=== PATIENT | female | born 1960 | race Caucasian/White ===

== ENCOUNTER → 2018-07-29 09:20 | Outpatient (CLI) | payer OTHER, SELFPAY ==
--- NOTE | 2018-07-29 09:24 | RAD_ITS ---
STUDY: X-RAY - LEFT ANKLE REASON FOR EXAM: Female, 57 years old. Left foot and ankle pain TECHNIQUE: 3 view(s) of the ankle. COMPARISON: None. FINDINGS: Normal visualized distal tibia and fibula. Well ossified density of the medial ankle suggesting old avulsion injury. Mild degenerative narrowing of the tibiotalar and fibulotalar articulation. Normal tibiotalar articulation and ankle mortise. There is a small calcaneal spur. The visualized subtalar, talonavicular, calcaneocuboid and tarsal articulations are normal. The soft tissue structures are unremarkable. RAD/Ankle min 3 Views IMPRESSION: 1. Mild osteoarthrosis of the ankle. 2. Old medial ankle avulsion injury. Electronically Signed: Tanner Gannon MD at 12:27 EST , Service support ,
--- NOTE | 2018-07-29 09:24 | RAD_ITS ---
STUDY: X-RAY - LEFT FOOT CLINICAL: Female, 57 years old. Left foot and ankle pain TECHNIQUE: 3 view(s) of the foot. COMPARISON: 08/07/2015 FINDINGS: There is a plantar calcaneal spur. Normal visualized subtalar, talonavicular, calcaneocuboid, tarsal and tarsometatarsal articulations. Normal metatarsi. There is degenerative arthrosis of the metatarsophalangeal joint of the hallux . Normal tibial and fibular sesamoid bones. Normal interphalangeal joint of the great toe. Normal phalanges of the great toe. There is joint space narrowing of the second MTP joint with flattening of the second metatarsal head and marginal osteophyte information about the phalanx and metatarsus. No erosion is seen. Normal interphalangeal joints and phalanges of the lesser toes. The soft tissue structures are unremarkable. RAD/Foot min 3 Views IMPRESSION: 1. No fracture or malalignment. 2. 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 Stable appearance since prior study. 3. Calcaneal spur. Electronically Signed: Tanner Gannon MD at 12:25 EST , Service support ,
--- OUTSIDE RECORDS SUMMARY | 2018-10-02 16:26 | XMS RPT_ITS ---
:1960 Author Organization OHIP Care Team Providers Name Role Phone Barron Bustillos Attending Unavailable Barron Bustillos Referring Unavailable Barron Bustillos Primary Care Unavailable Abram Castro Attending Unavailable Abram Castro Referring Unavailable Barron Bustillos Primary Care Unavailable ASSESSMENT, HEALTH RISK Attending Unavailable ASSESSMENT, HEALTH RISK Referring Unavailable Barron Bustillos Primary Care Unavailable Tamika Gomez Attending Unavailable Tamika Gomez Referring Unavailable Barron Bustillos Primary Care Unavailable DOCTOR, OUT OF TOWN Attending Unavailable Barron Bustillos Primary Care Unavailable PROBLEMS PROBLEMS No Problem Records FoundPROCEDURES PROCEDURES No Procedure Records FoundRESULTS RESULTS INITAL EVALUATION (1) Observed: 08/04/2018 Status: F Source: [place] - PT 11:36 AM [facility] REPOSITORY [facility] [address] [place] [address] / REHABILITATION SERVICES INITIAL EVALUATION MR#: [id number] Acct: [id number] Name: ABIOLA COLLIER Rep #: [id number] : 1960 57 From: Gomez Kirby PT, ATC Referring Dr.: Barron Bustillos MD Status: REG RCR Insurance: [facility] SELF PAY INSURANCE Patient's Visit Information ABIOLA COLLIER is a 57 year old F referred to Physical Therapy by Barron Bustillos MD with a diagnosis of R knee pain. Date of Evaluation: 08/04/18 Physical Therapist: Gomez Kirby, PT, ATC - Visit Plan Frequency: 1x/Week Duration: 1 Week Plan: Pt is I with HEP. Discharge - Subjective Findings: Pt reports her R knee has been sore for 2-3 years. Pt reports her knee used to be just clicky without pain, but eventually pain came into the picture. Pt reports her pain has progressively worsened over the past 3 mos. Pt notes her pain is located more on the medial aspect of her R knee and occurs the most when she is going down stairs. knee never gives out or locks up on her. Pt reports she has had no xrays taken at this time. Occasional sleep difficulty secondary to pain. Pt is unsure of PMHx reguarding R knee as she did have a knee problem in high school, but she cant remember which knee it was. 0/10 pain at rest, 4/10 pain at worst (at night time). Pain progressively worsens as the day goes on. - Pain R knee Pain Intensity (Out of 10): 0 Pain Intensity Range: 4 - Objective Neuro: B LE sensation is WNL to light touch. B achilles reflex= 3/3. Palpation: Pt has significant crepitus with AROM. Girth at joint line: B knees 32.5 cm. ROM: L knee 0-140; R knee 0-135. MMT: B knee flexion and extension= 5/5 throughout - Goals Goal 1:: N/A - Rehabilitation Potential Physical Therapy Diagnosis: Pt has R knee pain secondary to maltracking for patellofemoral joint Rehabilitation Potential: Good - Anticipated Interventions Therapeutic Exercise to Include: Strength training, Endurance training, Flexibilty training, Dynamic Lumbar Stabilization For the Purpose of:: To decrease pain, To improve muscle performance and motor function Thank you for the opportunity to evaluate your patient. For Medicare and Medicare HMO plans, please review the plan of care and approve it. It will need to be FAXED BACK to us at [phone] for Medicare purposes. For Medicare only, by signing this I certify the plan of care. Please let me know if there are questions or concerns regarding this plan of care. Physician Signature: Date: <Electronically signed by Gomez Kirby PT, ATC> 08/04/18 1136 CC: Barron Bustillos MD [facility] Signed URINALYSIS, EMPLOYEE Collected: 08/02/2018 Status: F Source: [place] 8:39 AM [facility] REPOSITORY TYPE CODE TESTS RESULT OUT OF RANGE REFERENCE UNITS LAB L400.3000 Yellow COLOR Normal Straw LAB L400.3050 Clear Normal CLARITY Clear LAB L400.3200 Normal mg/dl Normal GLUCOSE, UR Normal LAB L400.3300 Negative mg/dL Normal BILIRUBIN URINE Negative LAB L400.3400 Negative mg/dl Normal KETONE UR Negative LAB L400.3465 1.002-1.030 Normal SP.GR. DIPSTX 1.005 LAB L400.3550 5.0 - 8.0 pH UR Normal 6.5 LAB L400.3600 Negative mg/dl PROT Normal DIPSTX Negative LAB L400.3700 Normal mg/dl Normal UROBILI Normal LAB L400.3750 Negative Normal NITRITE UR Negative LAB L400.3780 Negative /ul Normal OCCULT BLOOD-UR Negative LAB L400.3800 Negative /ul LEUK Normal ESTERASE Negative Performed By: #### L400.0100 #### [facility] [address] [place], [address] CBC, EMPLOYEE Collected: 08/02/2018 Status: F Source: [place] 8:39 AM [facility] REPOSITORY TYPE CODE TESTS RESULT OUT OF RANGE REFERENCE UNITS LAB L100.1000 4.4-11.0 K/mm3 Normal WBC 8.0 LAB L100.1200 4.2-5.4 M/mm3 Normal RBC 4.96 LAB L100.1300 12.0-15.0 g/dl Normal HGB 14.6 LAB L100.1400 37-47 % Normal HCT 45.9 LAB L100.1500 81-99 fL Normal MCV 92.5 LAB L100.1600 27.0-32.0 pg Normal MCH 29.4 LAB L100.1700 32-36 g/gl Low MCHC 31.8 LAB L100.1810 11.6-14.6 % Normal RDW CV 12.6 LAB L100.1820 35.1-43.9 fl Normal RDW SD 42.5 LAB L100.1900 150-450 K/mm3 Normal PLT 243 LAB L100.2000 6.2-12.0 fl Normal MPV 10.3 LAB L100.2110 47-70 % High NEUT% 75.4 LAB L100.2210 19-41 % Low LY% 17.5 LAB L100.2310 0-10 % Normal MONO% 5.7 LAB L100.2410 0-5 % Normal EO% 1.1 LAB L100.2510 0-1 % Normal BASO% 0.2 LAB L100.2620 2.0-7.7 X10 3/uL Normal Absolute Neut 6.0 LAB L100.2720 0.83-4.51 X10 3/ul Normal Absolute Lymph 1.40 Performed By: #### L100.0200 #### [facility] [address] [place], [address] NICOTINE URINE DRUG Collected: 08/02/2018 Status: F Source: [place] SCRE[place] 8:39 AM [facility] REPOSITORY TYPE CODE TESTS RESULT OUT OF RANGE REFERENCE UNITS LAB L505.6250 TO BE Normal CONFIRMED Result Comment: CONFIRMATORY TESTING FOR ALL POSITIVE URINE DRUG SCREEN RESULTS WILL ONLY BE SENT OUT UPON PHYSICIAN ORDER. The results of Urine Drug Screen methods provide only preliminary analytical test results. A more specific alternate chemical method must be used in order to obtain a confirmed analytical result. Gas chromatography/mass spectrometery (GC/MS) is the preferred confirmatory method. Clinical consideration and professional judgement should be applied to any drug of abuse test result, particularly when preliminary positive results are used. LAB L505.6270 <200 ng/mL Normal COT DRG Negative SCREEN Result Comment: Cotinine is the first-stage metabolite of Nicotine. Performed By: #### L505.6240 #### [facility] [address] [place], [address] EMPLOYEE PROFILE Collected: 08/02/2018 Status: F Source: [place] 8:39 AM [facility] REPOSITORY TYPE CODE TESTS RESULT OUT OF RANGE REFERENCE UNITS LAB L501.0100 74-106 mg/dL Normal GLU 100 Result Comment: Fasting Glucose result from 100 to 125 mg/dL suggests IMPAIRED HOMEOSTASIS per A.D.A. criteria. Please note revised GLUCOSE reference range effective 2017. LAB L501.1000 7-18 mg/dL Normal BUN 15 LAB L501.1100 0.55-1.02 mg/dL High CREAT,SERUM 1.05 Result Comment: The validity of the calculated GFR AND GFRAA in patients over 70 years has not been determined. Clinical correlation is essential. LAB L501.1110 >60 mL/min Low EST GFR 57 Result Comment: Non- GFR Calc LAB L501.1115 >60 mL/min Normal EST GFR - AA 69 Result Comment: GFR Calc LAB L501.1300 10-20 RATIO Normal BUN/CRE 14.3 LAB L501.1400 2.6-6.0 mg/dL Normal URIC 4.2 Result Comment: The drugs N-Acetylcysteine and Metamizole may falsely depress this assay. LAB L501.1500 6.4-8.2 g/dL Normal T PROT 7.7 LAB L501.1800 3.2-5.0 g/dL Normal ALB 3.9 LAB L501.1950 2.2-4.2 g/dL Normal GLOB 3.8 LAB L501.2000 0.9-2.4 RATIO Normal A/G 1.0 LAB L501.2200 8.5-10.1 mg/dL Normal CA 9.3 LAB L501.2300 2.5-4.9 mg/dL Normal PHOS 3.3 LAB L501.4100 15-37 U/L High AST 42 LAB L501.4305 45-117 U/L High ALK P 126 LAB L501.4405 13-56 U/L High ALT 122 LAB L501.4600 0.20-1.00 mg/dL High T BILI 1.40 LAB L501.4700 0.00-0.30 mg/dL Normal D BILI 0.29 LAB L501.4900 200 mg/dL High CHOL 201 Result Comment: <200 mg/dL Desirable 200-240 mg/dL Borderline >240 mg/dL High Risk LAB L501.5000 mg/dL Normal TRIG 150 Result Comment: The drugs N-Acetylcysteine and Metamizole may falsely depress this assay. Serum Triglycerides Reference Interval Normal <150 mg/dL Borderline high 150 - 199 mg/dL High 200 - 499 mg/dL Very High > or = 500 mg/dL LAB L501.5300 136-145 mmol/L Normal NA 140 LAB L501.5600 3.5-5.1 mmol/L Normal K 4.3 LAB L501.5900 98-107 mmol/L Normal CL 104 LAB L501.6100 21.0-32.0 mmol/L Normal CO2 29.0 LAB L501.6200 5-15 Normal 7 GAP LAB L501.6400 mg/dL Normal HDL 63 Result Comment: The drugs N-Acetylcysteine and Metamizole may falsely depress this assay. Reference Range HDL <40 mg/dL Low HDL Cholesterol HDL >or= 60 mg/dL High HDL Cholesterol LAB L501.6475 Normal CHOL:HDL 3.20 LAB L501.6500 0-130 mg/dL Normal LDL 108 LAB L501.6600 5-40 mg/dL Normal VLDL 30 LAB L504.2610 84-246 U/L Normal LDH 156 Performed By: #### L500.2900 #### [facility] [address] [place], [address] THYROID STIM HORMONE Collected: 08/02/2018 Status: F Source: [place] ([place]) 8:30 AM [facility] REPOSITORY TYPE CODE TESTS RESULT OUT OF RANGE REFERENCE UNITS LAB L501.9520 0.358-3.74 uIU/mL Normal TSH 3.27 Performed By: #### L501.9520 #### [facility] [address] [place], [address] FOOT MIN 3 VIEWS Observed: 07/29/2018 Status: F Source: [place] 9:24 AM [facility] REPOSITORY [facility] Imaging Services [address] [place] [address] Foot min 3 Views MR#: [id number] Acct: [id number] Name: ABIOLA COLLIER Rep #: [id number] : 1960 F 57 From: Tanner Gannon MD PCP: Barron Bustillos MD Status: REG CLI Study: Foot min 3 Views Date of Exam: 07/29/18 Exam# [id number] Ordering Dr: Abram Castro DPM STUDY: X-RAY - LEFT FOOT CLINICAL: Female, 57 years old. Left foot and ankle pain TECHNIQUE: 3 view(s) of the foot. COMPARISON: 08/07/2015 FINDINGS: There is a plantar calcaneal spur. Normal visualized subtalar, talonavicular, calcaneocuboid, tarsal and tarsometatarsal articulations. Normal metatarsi. There is degenerative arthrosis of the metatarsophalangeal joint of the hallux . Normal tibial and fibular sesamoid bones. Normal interphalangeal joint of the great toe. Normal phalanges of the great toe. There is joint space narrowing of the second MTP joint with flattening of the second metatarsal head and marginal osteophyte information about the phalanx and metatarsus. No erosion is seen. Normal interphalangeal joints and phalanges of the lesser toes. The soft tissue structures are unremarkable. RAD/Foot min 3 Views IMPRESSION: 1. No fracture or malalignment. 2. 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 Stable appearance since prior study. 3. Calcaneal spur. Electronically Signed: Tanner Gannon MD at 12:25 EST , Service support , CC: Abram Castro DPM; Barron Busitllos MD Bakery Associate: Signed ANKLE MIN 3 VIEWS Observed: 07/29/2018 Status: F Source: [place] 9:24 AM [facility] REPOSITORY [facility] Imaging Services [address] [place] [address] Ankle min 3 Views MR#: [id number] Acct: [id number] Name: ABIOLA COLLIER Rep #: [id number] : 1960 F 57 From: Tanner Gannon MD PCP: Barron Bustillos MD Status: REG CLI Study: Ankle min 3 Views Date of Exam: 07/29/18 Exam# [id number] Ordering Dr: Abram Castro DPM STUDY: X-RAY - LEFT ANKLE REASON FOR EXAM: Female, 57 years old. Left foot and ankle pain TECHNIQUE: 3 view(s) of the ankle. COMPARISON: None. FINDINGS: Normal visualized distal tibia and fibula. Well ossified density of the medial ankle suggesting old avulsion injury. Mild degenerative narrowing of the tibiotalar and fibulotalar articulation. Normal tibiotalar articulation and ankle mortise. There is a small calcaneal spur. The visualized subtalar, talonavicular, calcaneocuboid and tarsal articulations are normal. The soft tissue structures are unremarkable. RAD/Ankle min 3 Views IMPRESSION: 1. Mild osteoarthrosis of the ankle. 2. Old medial ankle avulsion injury. Electronically Signed: Tanner Gannon MD at 12:27 EST , Service support , CC: Abram Castro DPM; Barron Bustillos MD Bakery Associate: Signed ALLERGIES ALLERGIES DATE TYPE / CODE NAME / CODE REACTION SEVERITY SOURCE 08/16/2014 Drug Sulfa Rash Unknown [place] Pending Sale To [facility] Allergy/4160 ([facility] [address]214(SNOMED Antibiotics)/ Repository CT) [id number](RX NORM) ENCOUNTERS ENCOUNTERS ADMIT/DISCHARGE ACCOUNT ADMITTING ENCOUNTER LOCATION SOURCE NUMBER CLASS 08/04/2018 [id number] [place] [facility] ing:PT Repository 08/02/2018 [id number] Ambulatory [place] 9 [facility] ing:LAB Repository 08/02/2018 [id number] Ambulatory [place] 6 [facility] ing:EMPH Repository 07/29/2018 [id number] Ambulatory [place] 1 [facility] ing:RAD Repository 06/30/2018 [id number] Ambulatory [place] 3 [facility] ing:MASS Repository PAYERS PAYERS ENCOUNTER GUARANTOR PAYER SUBSCRIBER SOURCE 08/04/2018 ABIOLA A Primary ABIOLA A [place] [id number] [place] Insurance:MEDICAL TROYERDOB: [id number] [address]Brk: Number: Repository [id number] () Date:6715-00-07ZA [place] [phone]: 08/04/2018 Secondary NOT GIVENUNK [place] Insurance:SELF PAY [facility] Number: Effective Repository Date:2018-07-27 08/02/2018 ABIOLA A Primary ABIOLA A [place] [id number] [place] Insurance:MEDICAL TROYERDOB: [facility] [id number] [address]Icx: Number: Repository [id number] () Date:2910-17-13RB [address] [place] [phone]: 08/02/2018 Secondary NOT GIVENUNK [place] Insurance:SELF PAY [facility] Number: Effective Repository Date:2018-08-02 08/02/2018 ABIOLA A Primary NOT GIVENUNK [place] [id number] [place] Insurance:SELF PAY [facility] 19759Jdf: Number: Effective Repository Date:2018-08-02 (HP) 07/29/2018 ABIOLA A Primary ABIOLA A [place] [id number] [place] Insurance:MEDICAL TROYERDOB: [facility] [id number] [address]Dmr: Number: Repository [id number] () Date:9402-04-08XV [address] [place] [phone]: 07/29/2018 Secondary NOT GIVENUNK [place] Insurance:SELF PAY [facility] Number: Effective Repository Date:2018-07-29 06/30/2018 ABIOLA A Primary NOT GIVENUNK [place] [id number] [place] Insurance:SELF PAY [facility] [id number]: Number: Effective Repository Date:2015-12-23 ()
== END ==
PROVIDERS: Family Provider Family Medicine; PCP Family Medicine; Referring Provider Podiatrist Foot & Ankle Surgery; Visit Provider Podiatrist Foot & Ankle Surgery
DX: M25.571 Pain in right ankle and joints of right foot (principal); M24.674 Ankylosis, right foot
CPT/HCPCS: 73610; 73630

== ENCOUNTER → 2018-08-02 08:24 | Outpatient (CLI) | payer OTHER, SELFPAY ==
[2018-08-02 10:09] LABS: Thyroid Stim Hormone (TSH) 3.27 uIU/mL (0.358-3.74)
--- OUTSIDE RECORDS SUMMARY | 2018-10-04 08:57 | XMS RPT_ITS ---
:1960 Author Organization OHIP Care Team Providers Name Role Phone Barron Bustillos Attending Unavailable Barron Bustillos Referring Unavailable Barron Bustillos Primary Care Unavailable Abram Castro Attending Unavailable Abram Castro Referring Unavailable Barron Bustillos Primary Care Unavailable DOCTOR, OUT OF TOWN Attending Unavailable Barron Bustillos Primary Care Unavailable ASSESSMENT, HEALTH RISK Attending Unavailable ASSESSMENT, HEALTH RISK Referring Unavailable Barron Bustillos Primary Care Unavailable Tamika Gomez Attending Unavailable Tamika Gomez Referring Unavailable Barron Bustillos Primary Care Unavailable PROBLEMS PROBLEMS No Problem Records FoundPROCEDURES PROCEDURES No Procedure Records FoundRESULTS RESULTS INITAL EVALUATION (1) Observed: 08/04/2018 Status: F Source: [place] - PT 11:36 AM [facility] REPOSITORY [facility] [address] [place] [address] / REHABILITATION SERVICES INITIAL EVALUATION MR#: [id number] Acct: [id number] Name: ABIOLA COLLIER Rep #: [id number] : 1960 57 From: Gomez Kirby PT, ATC Referring Dr.: Barron Bustillos MD Status: REG RCR Insurance: [facility] SELF PAY INSURANCE Patient's Visit Information ABIOLA [...] to be FAXED BACK to us at [phone] for Medicare purposes. For Medicare only, by signing this I certify the plan of care. Please let me know if there are questions or concerns regarding this plan of care. Physician Signature: Date: <Electronically signed by Gomez Kirby PT, ATC> 08/04/18 1136 CC: Barron Bustillos MD [facility] Signed URINALYSIS, EMPLOYEE Collected: 08/02/2018 Status: F Source: [place] 8:39 AM [facility] REPOSITORY TYPE CODE TESTS RESULT OUT OF [...] ESTERASE Negative Performed By: #### L400.0100 #### [facility] [address] [place], [address] CBC, EMPLOYEE Collected: 08/02/2018 Status: F Source: [place] 8:39 AM [facility] REPOSITORY TYPE CODE TESTS RESULT OUT OF [...] Lymph 1.40 Performed By: #### L100.0200 #### [facility] [address] [place], [address] NICOTINE URINE DRUG Collected: 08/02/2018 Status: F Source: [place] SCREEN 8:39 AM [facility] REPOSITORY TYPE CODE TESTS RESULT OUT OF [...] of Nicotine. Performed By: #### L505.6240 #### [facility] [address] [place], [address] EMPLOYEE PROFILE Collected: 08/02/2018 Status: F Source: [place] 8:39 AM [facility] REPOSITORY TYPE CODE TESTS RESULT OUT OF [...] LDH 156 Performed By: #### L500.2900 #### [facility] [address] [place], [address] THYROID STIM HORMONE Collected: 08/02/2018 Status: F Source: [place] (T[place]) 8:30 AM [facility] REPOSITORY TYPE CODE TESTS RESULT OUT OF RANGE REFERENCE UNITS LAB L501.9520 0.358-3.74 uIU/mL Normal TSH 3.27 Performed By: #### L501.9520 #### [facility] [address] [place], [address] FOOT MIN 3 VIEWS Observed: 07/29/2018 Status: F Source: [place] 9:24 AM [facility] REPOSITORY [facility] Imaging Services [address] [place] [address] Foot min 3 Views MR#: [id number] Acct: [id number] Name: ABIOLA COLLIER Rep #: [id number] : 1960 F 57 From: Tanner Gannon MD PCP: Barron Bustillos MD Status: REG CLI Study: Foot min 3 Views Date of Exam: 07/29/18 Exam# [id number] Ordering Dr: Abram Castro DPM STUDY: X-RAY [...] CC: Abram Castro DPM; Barron Bustillos MD Cytogenetic Technologist: Signed ANKLE MIN 3 VIEWS Observed: 07/29/2018 Status: F Source: [place] 9:24 AM [facility] REPOSITORY [facility] Imaging Services [address] [place] [address] Ankle min 3 Views MR#: [id number] Acct: [id number] Name: ABIOLA COLLIER Rep #: [id number] : 1960 F 57 From: Tanner Gannon MD PCP: Barron Bustillos MD Status: REG CLI Study: Ankle min 3 Views Date of Exam: 07/29/18 Exam# [id number] Ordering Dr: Abram Castro DPM STUDY: X-RAY [...] CC: Abram Castro DPM; Barron Bustillos MD Cytogenetic Technologist: Signed ALLERGIES ALLERGIES DATE TYPE / CODE NAME / CODE REACTION SEVERITY SOURCE 08/16/2014 Drug Sulfa Rash Unknown [place] Count Includes [facility] Allergy/4160 ([facility] [address]80(SNOMED Antibiotics)/ Repository CT) [id number](RX NORM) ENCOUNTERS ENCOUNTERS ADMIT/DISCHARGE ACCOUNT ADMITTING ENCOUNTER LOCATION SOURCE NUMBER CLASS 08/04/2018 [id number] Amb[place] [facility] ing:PT Repository 08/02/2018 [id number] Ambulatory [place] 9 [facility] ing:LAB Repository 08/02/2018 [id number] Ambulatory [place] 6 [facility] ing:EMPH Repository 07/29/2018 [id number] Ambulatory [place] 1 [facility] ing:RAD Repository 06/30/2018 [id number] Ambulatory [place] 3 [facility] ing:MASS Repository PAYERS PAYERS ENCOUNTER GUARANTOR PAYER SUBSCRIBER SOURCE 08/04/2018 ABIOLA A Primary [place]A A [place] [id number] [place] Insurance:MEDICAL TROYERDOB: [facility] [id number] [address]Ljy: Number: Repository [id number] () Date:7109-49-97ZQ [place] [phone]: 08/04/2018 Secondary NOT GIVENUNK [place] Insurance:SELF PAY [facility] Number: Effective Repository Date:2018-07-27 08/02/2018 ABIOLA A Primary ABIOLA A [place] [id number] [place] Insurance:MEDICAL TROYERDOB: [facility] [id number] [address]Apk: Number: Repository [id number] () Date:0890-49-50LS [address] [place] [phone]: 08/02/2018 Secondary NOT GIVENUNK [place] Insurance:SELF PAY [facility] Number: Effective Repository Date:2018-08-02 08/02/2018 ABIOLA A Primary NOT GIVENUNK [place] [id number] [place] Insurance:SELF PAY [facility] [id number]: Number: Effective Repository Date:2018-08-02 (HP) 07/29/2018 ABIOLA A Primary [place] A [place] [id number] [place] Insurance:MEDICAL TROYERDOB: [facility] [id number]-[facility]onc[facility] [address]Mao: Number: Repository [id number] () Date:2305-73-18SN [address] [place] [phone]: 07/29/2018 Secondary NOT GIVENUNK [place] Insurance:SELF PAY [facility] Number: Effective Repository Date:2018-07-29 06/30/2018 ABIOLA A Primary NOT GIVENUNK [place] [id number] [place] Insurance:SELF PAY [facility] [id number]: Number: Effective Repository Date:2015-12-23 ()
== END ==
PROVIDERS: Family Provider Family Medicine; PCP Family Medicine; Referring Provider Nurse Practitioner Adult Health; Visit Provider Nurse Practitioner Adult Health
DX: E03.9 Hypothyroidism, unspecified (principal)
CPT/HCPCS: 36415; 84443

== ENCOUNTER 2018-08-04 10:26 | Outpatient (RCR) | payer OTHER, SELFPAY ==
--- NOTE | 2018-08-04 11:34 | HP.PTEVAL ---
Patient's Visit Information ABIOLA COLLIER is a 57 year old F referred to Physical Therapy by Barron Bustillos MD with a diagnosis of R knee pain. Date of Evaluation: 08/04/18 Physical Therapist: Gomez Kirby PT, ATC - Visit Plan Frequency: 1x/Week Duration: 1 Week Plan: Pt is I with [facility]P. Discharge - Subjective Findings: Pt reports her R knee has been sore for 2-3 years. Pt reports her knee used to be just clicky without pain, but eventually pain came into the picture. Pt reports her pain has progressively worsened over the past 3 mos. Pt notes her pain is located more on the medial aspect of her R knee and occurs the most when she is going down stairs. knee never gives out or locks up on her. Pt reports she has had no xrays taken at this time. Occasional sleep difficulty secondary to pain. Pt is unsure of PMHx reguarding R knee as she did have a knee problem in high school, but she cant remember which knee it was. 0/10 pain at rest, 4/10 pain at worst (at night time). Pain progressively worsens as the day goes on. - Pain R knee Pain Intensity (Out of 10): 0 Pain Intensity Range: 4 - Objective Neuro: B LE sensation is WNL to light touch. B achilles reflex= 3/3. Palpation: Pt has significant crepitus with AROM. Girth at joint line: B knees 32.5 cm. ROM: L knee 0-140; R knee 0-135. MMT: B knee flexion and extension= 5/5 throughout - Goals Goal 1:: N/A - Rehabilitation Potential Physical Therapy Diagnosis: Pt has R knee pain secondary to maltracking for patellofemoral joint Rehabilitation Potential: Good - Anticipated Interventions Therapeutic Exercise to Include: Strength training, Endurance training, Flexibilty training, Dynamic Lumbar Stabilization For the Purpose of:: To decrease pain, To improve muscle performance and motor function Thank you for the opportunity to evaluate your patient. For Medicare and Medicare HMO plans, please review the plan of care and approve it. It will need to be FAXED BACK to us at [phone] for Medicare purposes. For Medicare only, by signing this I certify the plan of care. Please let me know if there are questions or concerns regarding this plan of care. Physician Signature: Date:
== END 2018-08-04 19:00 | disposition home or self-care (01) ==
LOC: PT 10:26
PROVIDERS: Family Provider Family Medicine; PCP Family Medicine; Referring Provider Family Medicine; Visit Provider Family Medicine
DX: M25.561 Pain in right knee (principal)
CPT/HCPCS: 97110; 97161

== ENCOUNTER → 2018-08-10 15:18 | Outpatient (CLI) | payer OTHER, SELFPAY ==
--- NOTE | 2018-08-10 15:27 | MRI_ITS ---
STUDY: MRI LEFT ANKLE WITHOUT CONTRAST REASON FOR EXAM: Female, 57 years old. Left ankle pain. TECHNIQUE: Standardized fat and water weighted pulse sequences were obtained in all 3 orthogonal planes. COMPARISON: X-ray July 29, 2018. FINDINGS: Normal subcutis adipose space. There is marrow edema of the medial malleolus. There is ossification inferior to the medial malleolus with prior avulsion and/or chronic impingement, series 5 image 12/29. Normal posterior tibialis tendon. Normal flexor digitorum longus tendon. Normal flexor hallucis longus tendon. Normal peroneus longus and brevis tendons. Normal tibialis anterior tendon. Normal extensor hallucis longus tendon. Normal extensor digitorum longus tendons. Normal Achilles tendon and teno-osseous insertion. Normal plantar fascia. There is a plantar calcaneal spur, but without cancellous marrow edema. Normal intrinsic muscles of the rearfoot. Normal distal tibiofibular syndesmotic ligamentous complex. Normal lateral ligamentous complex. Normal subtalar ligaments and sinus tarsi. Thickening with chronic sprain of the deltoid ligamentous complexes. Normal plantar calcaneonavicular (spring) ligament. There is a joint effusion of the tibiotalar articulation with capsular distension. There is arthritic change with spurring. Normal talar dome. Normal subtalar articulations. Normal talonavicular articulation. Normal calcaneocuboid articulation. Normal navicular-cuneiform articulations. MRI/Lower Ext Joint Only (Routine) IMPRESSION: Tibiotalar arthrosis with joint effusion. There is chronic medial impingement and/or prior avulsion. Electronically Signed: Leighton Chacon MD at 21:50 EST , Service support ,
== END ==
PROVIDERS: Family Provider Family Medicine; PCP Family Medicine; Referring Provider Podiatrist Foot & Ankle Surgery
DX: M25.572 Pain in left ankle and joints of left foot (principal)
CPT/HCPCS: 73721

== ENCOUNTER → 2018-08-17 14:07 | Outpatient (CLI) | payer OTHER, SELFPAY ==
--- NOTE | 2018-08-17 14:09 | BI_ITS ---
MAMMOGRAPHY - BILATERAL SCREENING REASON FOR EXAM: Female, 57 years old. Routine annual screening examination. PERTINENT HISTORY: Aunt with breast cancer. TECHNIQUE: Digital bilateral breast cherie (3D mammographic acquisition) in the CC and MLO projections. 2-D mediolateral oblique (MLO) and craniocaudad (CC) views of both breasts were obtained. CAD: Full Field Digital Mammography with Computer Added Detection was performed. COMPARISON: Comparison is made with prior study dated July 15, 2017 and June 22, 2016. FINDINGS: Breast Composition: There are scattered areas of fibroglandular density. There are no dominant masses or suspicious calcifications. Stable appearance of the benign appearing bilateral axillary lymph nodes. No other significant abnormalities are identified. There has been no significant change since the prior study. BI/SCREENING MAMM (CAD), BILAT IMPRESSION: Stable bilateral screening mammogram. Yearly follow-up mammogram recommended. (A) ASSESSMENT CATEGORY: BIRADS Category 2: Benign. A letter regarding these results will be sent to the patient by the facility within 30 days. Approximately 10% of breast cancers are not detected by mammography. A normal mammogram should not delay biopsy of a clinically suspicious abnormality. [id number] Electronically Signed: Jamison Bailey MD at 15:39 EST , Service support ,
== END ==
PROVIDERS: Family Provider Family Medicine; PCP Family Medicine; Visit Provider Nurse Practitioner Adult Health
DX: Z12.31 Encounter for screening mammogram for malignant neoplasm of breast (principal)
CPT/HCPCS: 77063; 77067

== ENCOUNTER 2018-09-01 05:53 | Day surgery (SDC) | payer OTHER, SELFPAY ==
--- NOTE | 2018-08-25 07:42 | EKG12_ITS ---
Test Reason : PRE-OP Blood Pressure : / mmHG Vent. Rate : 057 BPM Atrial Rate : 057 BPM P-R Int : 164 ms QRS Dur : 084 ms QT Int : 436 ms P-R-T Axes : 030 005 027 degrees QTc Int : 424 ms Sinus bradycardia Otherwise normal ECG Confirmed by NEMO ANTHONY, RICARDO ([id number]), news copy editor RICKI HANNA ([id number]) on 08/26/2018 8:14:11 AM Referred By: Abram Castro Confirmed By:RICARDO CHESTER MD
[2018-09-01 06:31] VITALS: BP 105/74; PULSE 67; RESP 16; TEMP 36.4; O2SAT 100; BMI 28.6
[2018-09-01 08:26] VITALS: BP 105/74; BP 111/72; PULSE 62; RESP 16; TEMP 36.1; O2SAT 97
--- NOTE | 2018-09-01 08:26 | PCM.DC.POD ---
Allergies/Adverse Reactions: Allergies Sulfa (Sulfonamide Antibiotics) Allergy (Verified 08/25/18 13:47) Rash Medications to take at Discharge Aspirin E.C. [Ecotrin] 81 mg PO DAILY@0800 08/16/14 Cholecalciferol (VIT D3) [Vitamin D3] 1,000 unit PO DAILY 08/16/14 Levothyroxine [Synthroid] 75 mcg PO DAILY 08/16/14 Calcium Carbonate/Vitamin D3 [Calcium 600 + Vit D Tablet] 1 each PO BID 08/25/18 Clonidine HCl [Catapres] 0.5 tab PO BID 08/25/18 Psyllium Husk [Metamucil] 660 gm PO DAILY 08/25/18 Sclaressence 2 drop PO DAILY 08/25/18 Turmeric 1 cap PO DAILY 08/25/18 Primary Care Physician: Barron Bustillos MD [Primary Care Provider] - Test Results: Test results from this visit will be discussed in further detail at your follow-up appointment, if applicable.
[2018-09-01 08:30] VITALS: BP 105/74; BP 118/74; PULSE 65; RESP 16; O2SAT 99
[2018-09-01 08:35] VITALS: BP 105/74; BP 118/70; PULSE 59; RESP 16; O2SAT 99
--- NOTE | 2018-09-01 08:35 | DCINST_ITS ---
Allergies/Adverse Reactions: Allergies Sulfa (Sulfonamide Antibiotics) Allergy (Verified 08/25/18 13:47) Rash Medications to take at Discharge Aspirin E.C. [Ecotrin] 81 mg PO DAILY@0800 08/16/14 Cholecalciferol (VIT D3) [Vitamin D3] 1,000 unit PO DAILY 08/16/14 Levothyroxine [Synthroid] 75 mcg PO DAILY 08/16/14 Calcium Carbonate/Vitamin D3 [Calcium 600 + Vit D Tablet] 1 each PO BID 08/25/18 Clonidine HCl [Catapres] 0.5 tab PO BID 08/25/18 Psyllium Husk [Metamucil] 660 gm PO DAILY 08/25/18 Sclaressence 2 drop PO DAILY 08/25/18 Turmeric 1 cap PO DAILY 08/25/18 Primary Care Physician: Barron Bustillos MD [Primary Care Provider] - Test Results: Test results from this visit will be discussed in further detail at your follow- up appointment, if applicable.
[2018-09-01 08:41] VITALS: BP 105/74; BP 109/75; PULSE 55; RESP 16; TEMP 36.1; O2SAT 100
--- NOTE | 2018-09-01 08:45 | OP_ITS ---
ABIOLA COLLIER Female : 1960 [facility]# [id number] 09/01/18 08:45 - Operative Note by Abram Castro [facility] Num: [id number] : 1960 Patient Age: 57 Surgeon; Abram strange D.P.MTangela Preoperative diagnosis; internal derangement left ankle with osteochondral defect Postop diagnosis; same Anesthesia; local MAC anesthesia Hemostasis; none Estimated blood loss; 1 mL Material; 4-0 nylon Injectables; 20 mils of 1% lidocaine with epinephrine 1-100,000 Patient was brought to the operating room and placed on the table in supine position. IV sedation was administered and the above-mentioned local anesthetic was injected. The foot was prepped and draped in usual sterile manner. Entered anterior medial and anterior lateral portal incisions were made on the ankle. Blunt dissection was carried down through the capsule. The camera was introduced medially and a full-radius shaver was introduced laterally. There is a significant amount of hemorrhagic synovium which was debrided. Is allowed for better visualization into the ankle joint. Was immediately noticed that there was a large round osteochondral loose fragment in the lateral gutter. A grasper was used to remove it completely. Corresponding to that area there was some chondromalacia of the lateral shoulder of the talus. This was debrided down to healthy chondral tissue. The rest of the ankle joint was scanned in all 4 quadrants in the cartilage was examined and noted to be solid without any further damage or defects. Simple interrupted sutures of nylon were applied and a dry sterile dressing was applied. Poor vascular flow was maintained to the foot and its digits throughout the procedure without any excessive bleeding. Patient tolerated the anesthesia procedure well
[2018-09-01 09:35] VITALS: BP 105/74
== END 2018-09-01 09:43 | disposition home or self-care (01) ==
LOC: SDC 05:54 → AC 05:54
PROVIDERS: Family Provider Family Medicine; PCP Family Medicine; Referring Provider Podiatrist Foot & Ankle Surgery; Visit Provider Podiatrist Foot & Ankle Surgery
PROC: (CPT 29898; principal; 2018-09-01 07:15)
DX: M24.872 Other specific joint derangements of left ankle, not elsewhere classified (principal); M21.962 Unspecified acquired deformity of left lower leg; D68.51 Activated protein C resistance; Z79.899 Other long term (current) drug therapy; Z79.82 Long term (current) use of aspirin; R00.1 Bradycardia, unspecified
CPT/HCPCS: 29898; 93005; J7120

== ENCOUNTER → 2019-08-18 11:37 | Outpatient (CLI) | payer OTHER, SELFPAY ==
[2019-02-10 09:26] VITALS: BMI 28.6
[2019-08-18 12:40] LABS: Thyroid Stim Hormone (TSH) 6.71 uIU/mL (0.358-3.74)
== END ==
PROVIDERS: PCP Family Medicine; Referring Provider Nurse Practitioner Adult Health; Visit Provider Nurse Practitioner Adult Health
DX: E03.9 Hypothyroidism, unspecified (principal)
CPT/HCPCS: 36415; 84443

== ENCOUNTER → 2019-08-22 12:18 | Outpatient (CLI) | payer OTHER, SELFPAY ==
[2019-02-10 09:26] VITALS: BMI 28.6
--- NOTE | 2019-08-22 12:21 | BI_ITS ---
MAMMOGRAPHY - BILATERAL SCREENING REASON FOR EXAM: Female, 58 years old. Routine annual screening examination. PERTINENT HISTORY: Grandmother with breast cancer. Aunts with breast cancer. TECHNIQUE: Digital bilateral breast joe (3D mammographic acquisition) in the CC and MLO projections. 2-D mediolateral oblique (MLO) and craniocaudad (CC) views of both breasts were obtained. CAD: Full Field Digital Mammography with Computer Added Detection was performed. COMPARISON: Comparison is made with prior examination dated August 17, 2018. FINDINGS: Breast Composition: There are scattered areas of fibroglandular density. There are no dominant masses or suspicious calcifications. Stable benign-appearing bilateral axillary No other significant abnormalities are identified. There has been no significant change since the prior study. BI/SCREEN MAMM (CAD) W/JOE BILAT IMPRESSION: Stable bilateral screening mammogram. Yearly follow-up mammogram recommended. (A) ASSESSMENT CATEGORY: BIRADS Category 2: Benign. A letter regarding these results will be sent to the patient by the facility within 30 days. Approximately 10% of breast cancers are not detected by mammography. A normal mammogram should not delay biopsy of a clinically suspicious abnormality. [id number] Electronically Signed: Jamison Bailey, at 13:45 EST , Service support ,
--- NOTE | 2019-08-22 12:25 | BD_ITS ---
STUDY: DUAL ENERGY X-RAY ABSORPTIOMETRY / DXA REASON FOR EXAM: Female, 58 years old. 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 COMPARISON: Comparison is made with prior examination dated June 27, 2015. FINDINGS: Lumbar Spine (L1-L4): g/cm2 (1.159) / T-score (-0.2) / Z-score (1.0) Findings are suggestive of normal bone density with a low fracture risk. Left Femur Total: g/cm2 (0.868) / T-score (-1.1) / Z-score (-0.2) Left Femoral Neck: g/cm2 (0.850) / T-score (-1.4) / Z-score (-0.1) Right Femur Total: g/cm2 (0.934) / T-score (-0.6) / Z-score (0.3) Right Femoral Neck: g/cm2 (0.902) / T-score (-1.0) / Z-score (0.3) The T-Scores on the most recent prior examination were: Lumbar Spine (L1-L4): There has been worsening of bone density since the previous examination. Left Femur Total: which represents a worsening of 3.1%. Right Femur Total: which represents a worsening of 0.6%. BD/Dexa Bone Density Study IMPRESSION: The patient is considered osteopenic as outlined below according to World Alexis Organization (WHO) criteria with a low fracture risk. There has been worsening of bone density since the previous examination. Reference Information: The T-score is the number of standard deviations above or below the standard which is normal for young adults at their peak bone mineral density. The World Health Organization (WHO) interprets the T-scores as follows: Above -1 Normal bone density Between -1 and -2.5 Osteopenia Equal to / or below -2.5 Osteoporosis As a practical clinical guideline, osteopenia may be graded as follows: Mild -1 through -1.5 Moderate -1.6 through -2.0 Severe -2.1 through -2.4 The Z-score is the number of standard deviations above or below age-matched controls. A Z-score of less than -1.5 would be considered abnormal. References: 1. NIH Osteoporosis and Related Bone Diseases http://www.osteo.org 2. International Society for Clinical Densitometry http://www.iscd.org 3. National Osteoporosis Foundation http://www.nof.org Electronically Signed: Jamison Bailey, at 13:58 EST , Service support ,
== END ==
PROVIDERS: PCP Family Medicine; Referring Provider Nurse Practitioner Adult Health; Visit Provider Nurse Practitioner Adult Health
DX: Z12.31 Encounter for screening mammogram for malignant neoplasm of breast (principal); Z78.0 Asymptomatic menopausal state
CPT/HCPCS: 77063; 77067; 77080

== ENCOUNTER 2020-05-14 05:23 | Day surgery (SDC) | payer OTHER, SELFPAY ==
[2019-02-10 09:26] VITALS: BMI 28.6
[2020-05-14] VITALS (11 sets, daily range): BP systolic 101–144; BP diastolic 57–93; PULSE 63–83; RESP 14–16; TEMP 35.8–36.5; O2SAT 97–100; BMI 25.9
[2020-05-14] MEDS: Lactated Ringers 1,000 ML 100 ML IV (05:46)
--- NOTE | 2020-05-14 06:06 | PCM.HP.STD ---
Problem List (1) Screening for intestinal cancer Status: Acute History of Present Illness Date of Admission: 05/14/20 The patient is a 59 year old F who presents for screening colonoscopy. She had one 10 years ago. She was instructed that she was somewhat tortuous. She had no history of polyps. No family history of colon cancer. She denies bright red blood per rectum or melena. No abdominal pain. No fever or cough or shortness of breath. No history of DVT. She states she otherwise enjoys good health. Past Medical History Medical History: Medical History (Last Updated 02/10/19 @ 09:25 by Kendal Maldonado) Thyroid disease E07.9 Allergies Sulfa (Sulfonamide Antibiotics) Allergy (Verified 05/14/20 05:33) Rash Home Medications: Ambulatory Orders Medication Instructions Recorded Aspirin E.C. [Ecotrin] 81 mg PO DAILY@0800 08/16/14 Levothyroxine [Synthroid] 88 mcg PO DAILY 08/16/14 Calcium Carbonate/Vitamin D3 1 ea PO BID 08/25/18 [Calcium 600 + Vit D Tablet] Clonidine HCl [Catapres] 0.5 tab PO BID 08/25/18 Turmeric 1 cap PO PRN PRN 08/25/18 Psyllium Husk/Aspartame [Metamucil 1 dose PO DAILY 05/10/20 Powder] Sclaressence 2 drp PO QHS 05/10/20 Surgical History: Surgical History (Last Updated 02/10/19 @ 09:25 by Kendal Maldonado) History of cholecystectomy Z90.49 History of hysterectomy Z90.710 History of resection of rib Z98.890 History of tubal ligation Z98.51 History of vein stripping Z98.890 Smoking Status: Never smoker Review of Systems Constitutional: Denies: Anorexia, Chills, Fever Cardiovascular: Denies: Chest Pain Respiratory: Denies: Cough, Shortness of Breath Gastrointestinal: Denies: Abdominal Pain, Hematochezia, Melena Endocrine: Denies: Change in Body Habitus VTE Information - Inpt Only VTE Present on Admission: No - Physical Exam Vitals/I&O's: Vital Signs Temp Pulse Resp BP Pulse Ox 97.7 F L 63 16 133/68 H 98 05/14/20 05:39 05/14/20 05:39 05/14/20 05:39 05/14/20 05:39 05/14/20 05:39 Oxygen Delivery Method Room Air Weight: 156 lb 4.924 oz Body Mass Index (BMI) 25.9 General: Alert, Oriented x3, Cooperative, No apparent distress HEENT: Atraumatic Oral: Moist Mucosa Lungs: Clear to auscultation, Normal air movement Cardiovascular: Regular rate, Regular Rhythm Abdomen: Soft, Non Tender, Non-Distended Extremities: No Calf Tenderness Neurological: - - Normal cognition Psych/Mental Status: Normal Affect Current Medications Lactated Ringer's () 1,000 mls @ 100 mls/hr IV .Q10H BECKY Last Admin: 05/14/20 05:46 Dose: 100 mls/hr Documented by: Assessment/Plan All Active Problems (Last Updated 02/10/19 @ 09:25 by Kendal Maldonado) Screening for intestinal cancer (Acute) Heat rash (Acute) 59-year-old female presents for screening colonoscopy today. Previous 1 was 10 years ago and not remarkable. She presents via open access. She is aware of the technique, benefit, risk, alternatives. She has had an opportunity to ask and have questions answered. We will proceed as noted. Wu Man M.D., F.A.C.S.
--- NOTE | 2020-05-14 07:07 | OP.CCLET_ITS ---
05/14/2020 Myo Echevarria MD [address] [phone] Re : Colonoscopy procedure for Aisha Mistry Dear Dr. Echevarria This procedure was performed on Thursday, May 14, 2020. My impressions and recommendations are as follows: Impressions : - Hemorrhoids found on perianal exam. - Tortuous colon. - The examination was otherwise normal. - No specimens collected. Recommendations : - Discharge patient to home. - Resume previous diet. - Continue present medications. - Repeat colonoscopy in 10 years for screening purposes. My findings are described in the full procedure note, which is enclosed. If I can be of further assistance, please feel free to contact me at Doctor phone number(s): Work: . Sincerely, Wu Man MD 05/14/2020 7:07:32 AM This report has been signed electronically.
--- NOTE | 2020-05-14 07:07 | OP.COLON_ITS ---
Patient Name: Aisha Mistry Procedure Date: 05/14/2020 6:12 AM Date of : 1960 Age: 59 Procedure: Colonoscopy Indications: Screening for colorectal malignant neoplasm Providers: Wu Man MD Referring MD: Moy Echevarria MD Medicines: Midazolam 6 mg IV, Meperidine 150 mg IV, Diphenhydramine 25 mg IV Patient Profile: Last Colonoscopy: 10 years ago. Complications: No immediate complications. Procedure: Pre-Anesthesia Assessment: - Prior to the procedure, a History and Physical was performed, and patient medications and allergies were reviewed. The patient's tolerance of previous anesthesia was also reviewed. The risks and benefits of the procedure and the sedation options and risks were discussed with the patient. All questions were answered, and informed consent was obtained. Prior Anticoagulants: The patient has taken no previous anticoagulant or antiplatelet agents. ASA Grade Assessment: I - A normal, healthy patient. After reviewing the risks and benefits, the patient was deemed in satisfactory condition to undergo the procedure. After I obtained informed consent, the scope was passed under direct vision. Throughout the procedure, the patient's blood pressure, pulse, and oxygen saturations were monitored continuously. The adult colonoscope was introduced through the anus and advanced to the cecum, identified by appendiceal orifice and ileocecal valve. The colonoscopy was extremely difficult due to a redundant colon, significant looping and a tortuous colon. Successful completion of the procedure was aided by increasing the dose of sedation medication and applying abdominal pressure. The patient tolerated the procedure well. The quality of the bowel preparation was good. Moderate Sedation: Moderate (conscious) sedation was administered by the endoscopy nurse and supervised by the endoscopist. The following parameters were monitored: oxygen saturation, heart rate, blood pressure, and response to care. Total physician intraservice time was 28 minutes. Scope In: 6:28:06 AM Scope Withdrawal Time 0 hours 7 minutes 5 seconds Scope Out: 6:59:55 AM Total Procedure Duration Time 0 hours 31 minutes 49 seconds Findings: Hemorrhoids were found on perianal exam. The colon (entire examined portion) was significantly tortuous. Advancing the scope required changing the patient to a supine position and using manual pressure. The exam was otherwise without abnormality. Impression: - Hemorrhoids found on perianal exam. - Tortuous colon. - The examination was otherwise normal. - No specimens collected. Recommendation: - Discharge patient to home. - Resume previous diet. - Continue present medications. - Repeat colonoscopy in 10 years for screening purposes. Procedure Code(s): --- Professional --- 83178, Colonoscopy, flexible; diagnostic, including collection of specimen(s) by brushing or washing, when performed (separate procedure) 67517, 59, Moderate sedation services provided by the same physician or other qualified health hospice care sales consultant performing the diagnostic or therapeutic service that the sedation supports, requiring the presence of an independent trained observer to assist in the monitoring of the patient's level of consciousness and physiological status; initial 15 minutes of intraservice time, patient age 5 years or older [address]645, Moderate sedation services provided by the same physician or other qualified health hospice care sales consultant performing the diagnostic or therapeutic service that the sedation supports, requiring the presence of an independent trained observer to assist in the monitoring of the patient's level of consciousness and physiological status; each additional 15 minutes intraservice time (List separately in addition to code for primary service) Diagnosis Code(s): --- Professional --- Z12.11, Encounter for screening for malignant neoplasm of colon K64.9, Unspecified hemorrhoids Q43.8, Other specified congenital malformations of intestine CPT copyright 2017 [employer]. All rights reserved. The codes documented in this report are preliminary and upon contestant coordinator review may be revised to meet current compliance requirements. Wu Man MD 05/14/2020 7:07:32 AM This report has been signed electronically. Number of Addenda: 0 Note Initiated On: 05/14/2020 6:12 AM
== END 2020-05-14 08:24 | disposition home or self-care (01) ==
LOC: EN 05:23 → AC 05:24
PROVIDERS: PCP Family Medicine; Referring Provider Family Medicine; Visit Provider Surgery
PROC: 0DJD8ZZ Inspection of Lower Intestinal Tract, Via Natural or Artificial Opening Endoscopic (ICD-10-PCS; CPT 45378; principal; 2020-05-14 06:25)
DX: Z12.11 Encounter for screening for malignant neoplasm of colon (principal); K64.9 Unspecified hemorrhoids; Q43.8 Other specified congenital malformations of intestine; Z11.59 Encounter for screening for other viral diseases; E07.9 Disorder of thyroid, unspecified; Z90.49 Acquired absence of other specified parts of digestive tract; Z79.899 Other long term (current) drug therapy
CPT/HCPCS: 45378; 87635; C9803; J7120; U0003

== ENCOUNTER → 2020-08-21 13:39 | Outpatient (CLI) | payer OTHER, SELFPAY ==
[2020-05-14 05:39] VITALS: BMI 25.9
--- NOTE | 2020-08-21 13:50 | RAD_ITS ---
STUDY: X-RAY - RIGHT KNEE REASON FOR EXAM: Female, 59 years old. Right knee pain, patient states she would walk on the treadmill with incline, pain since then TECHNIQUE: 4 view(s) of the knee. COMPARISON: None. FINDINGS: Normal visualized distal femur. Normal visualized proximal tibia and fibula. Normal proximal tibiofibular articulation. Normal medial femorotibial compartment. Normal lateral femorotibial compartment. There is mild degenerative arthrosis of the patellofemoral articulation. The soft tissue structures are unremarkable. RAD/Knee 4 or More Views IMPRESSION: Degenerative arthrosis. Electronically Signed: Jamison Bailey MD at 15:08 EST , Service support ,
== END ==
PROVIDERS: PCP Family Medicine; Referring Provider Orthopaedic Surgery; Visit Provider Orthopaedic Surgery
DX: M25.561 Pain in right knee (principal)
CPT/HCPCS: 73564

== ENCOUNTER → 2020-08-22 12:53 | Outpatient (CLI) | payer OTHER, SELFPAY ==
[2020-05-14 05:39] VITALS: BMI 25.9
--- NOTE | 2020-08-22 13:00 | RAD_ITS ---
STUDY: X-RAY - LEFT ANKLE REASON FOR EXAM: Female, 59 years old. . Tripped and fall in April. Medial ankle pain. TECHNIQUE: 3 view(s) of the ankle. COMPARISON: Left ankle, 07/29/2018. FINDINGS: Normal visualized distal tibia and fibula. And seen is a small osseous density adjacent to the medial malleolus which may represent a remote evulsion fracture versus secondary ossicle. Minimal arthrosis of the tibiotalar articulation and ankle mortise. Small calcaneal spur. The calcaneus and talus are otherwise unremarkable. The visualized subtalar, talonavicular, calcaneocuboid and tarsal articulations are normal. The soft tissue structures are unremarkable. RAD/Ankle min 3 Views IMPRESSION: Stable arthrosis of the ankle and hindfoot. There is no acute fracture or dislocation. Electronically Signed: Sami De Luna DO at 21:41 EST Tel [phone], Service support ,
== END ==
PROVIDERS: PCP Family Medicine; Referring Provider Podiatrist Foot & Ankle Surgery; Visit Provider Podiatrist Foot & Ankle Surgery
DX: M25.572 Pain in left ankle and joints of left foot (principal)
CPT/HCPCS: 73610

== ENCOUNTER → 2020-09-12 07:12 | Outpatient (CLI) | payer OTHER, SELFPAY ==
[2020-05-14 05:39] VITALS: BMI 25.9
--- NOTE | 2020-09-12 07:22 | MRI_ITS ---
STUDY: MRI RIGHT KNEE REASON FOR EXAM: Right medial knee pain with clicking for approximately 4 years. TECHNIQUE: Standardized fat and water weighted pulse sequences were obtained in all 3 orthogonal planes. COMPARISON: Radiographs 08/21/2020. FINDINGS: There is mild intrasubstance myxoid degeneration of the posterior horn of the medial meniscus without discrete medial meniscal tear. There is mild arthrosis of the medial femorotibial compartment with small marginal osteophytes of the medial femoral condyle and mild partial-thickness chondral loss of the medial femoral condyle (T2 sagittal image 16). Normal medial femoral condyle and tibial plateau. Normal medial collateral ligamentous complex (MCL). Normal distal semimembranosus, gracilis and semitendinosus tendons. Normal lateral meniscus. Normal hyaline cartilage of the lateral femorotibial compartment. There are small marginal osteophytes of the lateral femoral condyle. Normal lateral femoral condyle and tibial plateau. Normal proximal tibiofibular articulation. Normal lateral collateral (fibular) ligament. Normal popliteus tendon. Normal biceps femoris tendon. Normal anterior cruciate ligament (ACL). Normal posterior cruciate ligament (PCL). Normal congruent patellofemoral articulation. There is arthrosis of the patellofemoral compartment with marginal osteophytes and chondral thinning (T2 sagittal image 11). Normal medial and lateral patellar retinaculum. Normal visualized quadriceps tendon. There is an enthesophyte at the superior pole of the patella. Normal patellar tendon. Normal Hoffa''s fat pad. There is a small joint effusion. There is very mild prepatellar bursitis (T2 sagittal images 11-13). There is a small ganglion cyst at the posterior aspect of the lateral femoral condyle (T2 sagittal image 7) measuring 0.6 cm in length. There is a small cyst in the proximal tibia at the insertion site of the posterior cruciate ligament. MRI/Lower Ext Joint Only (Routine) IMPRESSION: Patellofemoral arthrosis. Mild arthrosis of the medial femorotibial compartment. Small joint effusion. Very mild prepatellar bursitis. Small posterior ganglion cyst. Electronically Signed: Robert Mai MD at 8:18 EST Tel , Service support ,
== END ==
PROVIDERS: PCP Family Medicine; Referring Provider Nurse Practitioner Adult Health; Visit Provider Nurse Practitioner Adult Health
DX: M17.11 Unilateral primary osteoarthritis, right knee (principal)
CPT/HCPCS: 73721

== ENCOUNTER → 2020-12-23 06:57 | Outpatient (CLI) | payer SELFPAY ==
[2020-05-14 05:39] VITALS: BMI 25.9
--- NOTE | 2020-12-23 07:04 | BI_ITS ---
MAMMOGRAPHY - BILATERAL SCREENING REASON FOR EXAM: Female, 60 years old. Routine annual screening examination. PERTINENT HISTORY: Grandmother with breast cancer. Aunts with breast cancer. TECHNIQUE: Digital bilateral breast joe (3D mammographic acquisition) in the CC and MLO projections. 2-D mediolateral oblique (MLO) and craniocaudad (CC) views of both breasts were obtained. CAD: Full Field Digital Mammography with Computer Added Detection was performed. COMPARISON: Comparison is made with prior study dated 08/22/2019 and 08/17/2018. FINDINGS: Breast Composition: There are scattered areas of fibroglandular density. There are no dominant masses or suspicious calcifications. Stable benign-appearing bilateral axillary nodes. No other significant abnormalities are identified. There has been no significant change since the prior study. BI/SCRN MAMM (CAD)W/JOE BILAT IMPRESSION: Stable bilateral screening mammogram. Yearly follow-up mammogram recommended. (A) ASSESSMENT CATEGORY: BIRADS Category 2: Benign. A letter regarding these results will be sent to the patient by the facility within 30 days. Approximately 10% of breast cancers are not detected by mammography. A normal mammogram should not delay biopsy of a clinically suspicious abnormality. [id number] Electronically Signed: Jamison Bailey MD at 8:11 EDT , Service support ,
== END ==
PROVIDERS: PCP Family Medicine; Referring Provider Nurse Practitioner Adult Health; Visit Provider Nurse Practitioner Adult Health
DX: Z12.31 Encounter for screening mammogram for malignant neoplasm of breast (principal); Z80.3 Family history of malignant neoplasm of breast
CPT/HCPCS: 77063; 77067

== ENCOUNTER 2021-04-04 10:33 | Day surgery (SDC) | payer OTHER, SELFPAY ==
[2021-04-04] VITALS (7 sets, daily range): BP systolic 95–124; BP diastolic 62–81; PULSE 54–74; RESP 16; TEMP 36.2–36.6; O2SAT 97–100; BMI 28.7
[2021-04-04] MEDS: Lactated Ringers 1,000 ML 100 ML IV (11:10)
[2021-04-04] MEDS: Lidocaine 1% /Epi 1:100 (50ml) 50 ML VIAL (12:18)
--- NOTE | 2021-04-04 12:52 | EX.PCM.DISCH ---
Discharge Instructions Diet Discharge Diet: No restrictions Activity Discharge Activity: May Not Shower and Use Crutches Weight Bearing Status: Partial weight bearing Keep extremity elevated above heart level: Left Leg Dressing / Incision Call your doctor if you observe: Uncontrolled pain Change Dressing in: do not change dressing Cleanse incision/area with: Do not get Incision Wet and Keep Dressing Clean & Dry Follow Up Care Please Follow Up With: Abram Castro DPM When: 6 days, see discharge instruction sheet from [facility] Test Results: Test results from this visit will be discussed in further detail at your follow-up appointment, if applicable. Discharge Plan Admission Attending Provider: Abram Castro Primary Care Provider: Natalie Dhaliwal Discharge Orders/Prescriptions Prescriptions: No Action levothyroxine 88 mcg tablet 88 mcg PO DAILY RF: 0 psyllium husk [Metamucil] 0.4 gram capsule 0.4 gm PO DAILY RF: 0 aspirin 81 MG tablet 81 mg PO DAILY@0800 RF: 0 clonidine HCl 0.1 MG tablet 0.05 tab PO BID RF: 0 calcium carbonate-vitamin D3 1 EACH tablet 1 ea PO BID RF: 0 Sclaressence 2 drp PO QHS RF: 0 B Complex Tablet Extended Release 1 tab PO DAILY RF: 0 Referrals / Follow Up: Natalie Dhaliwal MD [Primary Care Provider] - Disposition Disposition (needs filled in before D/C Order can be placed): Home, Self Care
--- NOTE | 2021-04-04 12:56 | PCM.OPRPT ---
Report of Operation Date of Procedure: 04/04/21 Pre-Operative Diagnosis: Internal derangement left ankle Post-Operative Diagnosis: Osteochondritis dissecans left ankle, early osteodegenerative arthritis Surgery/Procedure Performed:: Aggressive ankle arthroscopy left ankle Description of Surgical Findings:: Patient was brought to the operating room and placed on the table in the supine position left foot and ankle was prepped and draped in usual sterile fashion 18 mL of 1% lidocaine with epinephrine was injected standard anterior medial and anterior lateral portal incisions were made. They were deepened by blunt dissection. The obturator and cannula was introduced laterally. Full-radius shaver was introduced medially. There is extensive hypertrophic synovium with connective tissue. This had to be debrided away to get a good visualization of the ankle joint. Once the ankle joint was easily visualized all 4 quadrants were scanned. There is significant softening of the cartilage. Evidenced by crabmeat appearance of most of the talar dome and the anterior tibial lip. This was debrided away and smooth it as much as possible. There were no loose bodies identified. The ankle joint was put through a range of motion there was no impinging lesions or connective or restrictive bands remaining. The equipment was removed. 4-0 nylon was used to repair the incisions. Dry sterile dressing was applied. Full vascular status was maintained to the foot and stages throughout the procedure. Bleeding is well controlled. Surgeon: Abram Castro Type of Anesthesia: MAC/Supplemental/Local Specimen's removed: none Drains: None Estimated Blood Loss (mL): 10 mils Complications None Admit VTE Documentation VTE Mechan Device Prophylaxis: SCD's VTE Pharm Prophylaxis ordered?: No
== END 2021-04-04 13:46 ==
LOC: SDC 10:36 → AC 10:37
PROVIDERS: PCP Internal Medicine; Referring Provider Podiatrist Foot & Ankle Surgery; Visit Provider Podiatrist Foot & Ankle Surgery
PROC: (CPT 29898; principal; 2021-04-04 12:00)
DX: M93.272 Osteochondritis dissecans, left ankle and joints of left foot (principal); M19.072 Primary osteoarthritis, left ankle and foot; E07.9 Disorder of thyroid, unspecified; D68.51 Activated protein C resistance; Z79.82 Long term (current) use of aspirin; Z79.899 Other long term (current) drug therapy
CPT/HCPCS: 01464; 29898; J7120; J2405

== ENCOUNTER 2021-09-12 07:34 | Outpatient (CLI) | payer OTHER, SELFPAY ==
[2021-09-12 08:57] LABS: Thyroid Stim Hormone (TSH) 9.11 uIU/mL (0.358-3.74)
== END 2021-09-12 23:59 | disposition home or self-care (01) ==
LOC: LAB 07:37
PROVIDERS: PCP Internal Medicine; Referring Provider Nurse Practitioner Adult Health; Visit Provider Nurse Practitioner Adult Health
DX: E03.9 Hypothyroidism, unspecified (principal)
CPT/HCPCS: 84443

== ENCOUNTER → 2021-12-10 | Outpatient (CLI) | payer OTHER, SELFPAY ==
[2021-12-10 13:41] LABS: Thyroid Stim Hormone (TSH) 2.78 uIU/mL (0.358-3.74)
== END | disposition home or self-care (01) ==
LOC: LAB 11:29
PROVIDERS: PCP Internal Medicine; Visit Provider Nurse Practitioner Adult Health
DX: E03.9 Hypothyroidism, unspecified (principal)
CPT/HCPCS: 36415; 84443

== ENCOUNTER → 2021-12-26 | Outpatient (CLI) | payer OTHER, SELFPAY ==
--- NOTE | 2021-12-26 12:04 | BI_ITS ---
MAMMOGRAPHY - BILATERAL SCREENING REASON FOR EXAM: Female, 61 years old. Routine annual screening examination. PERTINENT HISTORY: Grandmother with breast cancer. Aunts with breast cancer. TECHNIQUE: Digital bilateral breast joe (3D mammographic acquisition) in the CC and MLO projections. 2-D mediolateral oblique (MLO) and craniocaudad (CC) views of both breasts were obtained. CAD: Full Field Digital Mammography with Computer Added Detection was performed. COMPARISON: Comparison is made with prior study dated 12/23/2020 and 08/22/2019. FINDINGS: Breast Composition: There are scattered areas of fibroglandular density. There are no dominant masses or suspicious calcifications. Stable small benign-appearing bilateral axillary lymph nodes. No other significant abnormalities are identified. There has been no significant change since the prior study. BI/SCRN MAMM (CAD)W/JOE BILAT IMPRESSION: Stable bilateral screening mammogram. Yearly follow-up mammogram recommended. (A) ASSESSMENT CATEGORY: BIRADS Category 2: Benign. A letter regarding these results will be sent to the patient by the facility within 30 days. Approximately 10% of breast cancers are not detected by mammography. A normal mammogram should not delay biopsy of a clinically suspicious abnormality. [id number] Electronically Signed: Jamison Bailey MD at 13:14 EDT ,
== END | disposition home or self-care (01) ==
PROVIDERS: PCP Internal Medicine; Referring Provider Nurse Practitioner Adult Health; Visit Provider Nurse Practitioner Adult Health
DX: Z12.31 Encounter for screening mammogram for malignant neoplasm of breast (principal)
CPT/HCPCS: 77063; 77067

== ENCOUNTER → 2022-10-14 | Outpatient (CLI) | payer OTHER, SELFPAY ==
[2022-10-14 11:52] LABS: Vitamin D,25 Hydroxy 63.3 ng/mL
[2022-10-14 12:27] LABS: Thyroid Stim Hormone (TSH) 1.44 uIU/mL (0.358-3.74)
== END | disposition home or self-care (01) ==
PROVIDERS: PCP Internal Medicine; Referring Provider Internal Medicine; Visit Provider Internal Medicine
DX: E03.9 Hypothyroidism, unspecified (principal); M85.80 Other specified disorders of bone density and structure, unspecified site
CPT/HCPCS: 36415; 82306; 84443

== ENCOUNTER → 2022-11-18 | Outpatient (CLI) | payer OTHER, SELFPAY ==
[2022-11-18 13:58] LABS: AST(SGOT) 23 U/L (15-37); Alanine Aminotransfer ALT/SGPT 69 U/L (13-56); Albumin, Serum 3.8 g/dL (3.2-5.0); Alkaline Phosphatase 125 U/L (45-117); Anion Gap 7 (5-15); BUN 17 mg/dL (7-18); BUN/Creat Ratio 16.8 RATIO (10-20); Calcium,Total 9.8 mg/dL (8.5-10.1); Chloride 103 mmol/L (98-107); Creatinine, Serum 1.01 mg/dL (0.55-1.02); EST Glomerular Filtration Rate 59 mL/min (>60); Est Glom Filt Rate - Afr Amer 71 mL/min (>60); Globulin 3.8 g/dL (2.2-4.2); Glucose 96 mg/dL (74-106); Potassium 3.7 mmol/L (3.5-5.1); Protein, Total 7.6 g/dL (6.4-8.2); Sodium Level 138 mmol/L (136-145)
== END | disposition home or self-care (01) ==
LOC: LAB 12:30
PROVIDERS: PCP Internal Medicine; Referring Provider Internal Medicine; Visit Provider Internal Medicine
DX: R74.8 Abnormal levels of other serum enzymes (principal)
CPT/HCPCS: 36415; 80053

== ENCOUNTER → 2022-12-28 | Outpatient (CLI) | payer OTHER, SELFPAY ==
--- NOTE | 2022-12-28 12:08 | BI_ITS ---
MAMMOGRAPHY - BILATERAL SCREENING REASON FOR EXAM: Female, 62 years old. Routine annual screening examination. PERTINENT HISTORY: Grandmother with breast cancer. Aunts with breast cancer. TECHNIQUE: Digital bilateral breast joe (3D mammographic acquisition) in the CC and MLO projections. 2-D mediolateral oblique (MLO) and craniocaudad (CC) views of both breasts were obtained. CAD: Full Field Digital Mammography with Computer Added Detection was performed. COMPARISON: Mammogram from 12/26/2021, 12/23/2020. FINDINGS: Breast Composition: There are scattered areas of fibroglandular density. There are no dominant masses or suspicious calcifications. No other significant abnormalities are identified. There has been no significant change since the prior study. BI/SCRN MAMM (CAD)W/JOE BILAT IMPRESSION: Stable bilateral screening mammogram. Yearly follow-up mammogram recommended. (A) ASSESSMENT CATEGORY: BIRADS Category 1: Negative. A letter regarding these results will be sent to the patient by the facility within 30 days. Approximately 10% of breast cancers are not detected by mammography. A normal mammogram should not delay biopsy of a clinically suspicious abnormality. Electronically Signed: Praveen Diane DO at 10:49 EDT ,
[2022-12-28 13:31] LABS: ALB/GLOB Ratio 1.1 RATIO (0.9-2.4); AST(SGOT) 27 U/L (15-37); Alanine Aminotransfer ALT/SGPT 51 U/L (13-56); Albumin, Serum 4.1 g/dL (3.2-5.0); Alkaline Phosphatase 123 U/L (45-117); Anion Gap 7 (5-15); BUN 20 mg/dL (7-18); BUN/Creat Ratio 18.3 RATIO (10-20); Calcium,Total 9.6 mg/dL (8.5-10.1); Chloride 104 mmol/L (98-107); Creatinine, Serum 1.09 mg/dL (0.55-1.02); EST Glomerular Filtration Rate 54 mL/min (>60); Est Glom Filt Rate - Afr Amer 65 mL/min (>60); Globulin 3.9 g/dL (2.2-4.2); Glucose 99 mg/dL (74-106); Potassium 3.8 mmol/L (3.5-5.1); Sodium Level 138 mmol/L (136-145)
== END | disposition home or self-care (01) ==
LOC: OPBI 12:04
PROVIDERS: PCP Internal Medicine; Referring Provider Internal Medicine; Visit Provider Internal Medicine
DX: Z12.31 Encounter for screening mammogram for malignant neoplasm of breast (principal); Z80.3 Family history of malignant neoplasm of breast; R74.8 Abnormal levels of other serum enzymes
CPT/HCPCS: 36415; 77063; 77067; 80053

== ENCOUNTER → 2023-09-08 | Outpatient (CLI) | payer OTHER, SELFPAY ==
--- NOTE | 2023-09-08 11:57 | BD_ITS ---
STUDY: DUAL ENERGY X-RAY ABSORPTIOMETRY / DXA REASON FOR EXAM: Female, 62 years old. Osteopenia TECHNIQUE: Bone Mineral Density (BMD) measurements of lumbar spine and bilateral hips were obtained. COMPARISON: Comparison is made with prior study dated August 22, 2019. FINDINGS: Lumbar Spine (L1-L4): g/cm2 (0.913) / T-score (-1.2) / Z-score (0.5) Findings are suggestive of osteopenia with a low fracture risk. Left Femur Total: g/cm2 (0.794) / T-score (-1.2) / Z-score (0.0) Left Femoral Neck: g/cm2 (0.714) / T-score (-1.2) / Z-score (0.2) Right Femur Total: g/cm2 (0.779) / T-score (-1.3) / Z-score (-0.2) Right Femoral Neck: g/cm2 (0.716) / T-score (-1.2) / Z-score (0.3) The T-Scores on the most recent prior examination were: Lumbar Spine (L1-L4): There has been worsening of bone density since the previous examination. Left Femur Total: which represents a worsening of 1.4%. Right Femur Total: which represents a worsening of 10.4%. BD/Dexa Bone Density Study IMPRESSION: The patient is considered osteopenic as outlined below according to World Alexis Organization (WHO) criteria with a low fracture risk. There has been worsening of bone density since the previous examination. Reference Information: The T-score is the number of standard deviations above or below the standard which is normal for young adults at their peak bone mineral density. The World Health Organization (WHO) interprets the T-scores as follows: Above -1 Normal bone density Between -1 and -2.5 Osteopenia Equal to / or below -2.5 Osteoporosis As a practical clinical guideline, osteopenia may be graded as follows: Mild -1 through -1.5 Moderate -1.6 through -2.0 Severe -2.1 through -2.4 The Z-score is the number of standard deviations above or below age-matched controls. A Z-score of less than -1.5 would be considered abnormal. References: 1. NIH Osteoporosis and Related Bone Diseases www osteo.org 2. International Society for Clinical Densitometry www iscd.org 3. National Osteoporosis Foundation www nof.org Electronically Signed: Jamison Bailey MD at 8:54 EST ,
--- OUTSIDE RECORDS SUMMARY | 2023-09-08 21:48 | XMS RPT_ITS | CCD ---
Author Name Unknown Address [address] [place] [address] Organization [facility] Results Test Name Value Interpretation Reference Range Facil ity Summary Purpose Family History No Family History Records Found Advance Directives No Advanced Directives Records Found Additional Source Comments INFORMATION SOURCE (unrecogn ized section and content) FOR RECORDS PERTAINING TO PATIENTS WHO ARE OR HAVE BEEN ENROLLED IN A CHEMICAL DEPENDENCY/SUBSTANCEABUSE PROGRAM, SOME INFORMATION MAY BE OMITTED. This clinical summary was aggregated from multiple sources. Caution should be exercised in using it in the provision of clinical care. This summary normalizes information from multiple sources, and as a consequence, information in this document may materially change the coding, format and clinical context of patient data. In addition, data may be omitted in some cases. CLINICAL DECISIONS SHOULD BE BASED ON THE PRIMARY CLINICAL RECORDS. [employer] provides no warranty or guarantee of the accuracy or completeness of information in this document.
== END | disposition home or self-care (01) ==
LOC: OPBD 11:57
PROVIDERS: PCP Internal Medicine; Visit Provider Internal Medicine
DX: M85.80 Other specified disorders of bone density and structure, unspecified site (principal)
CPT/HCPCS: 77080

== ENCOUNTER → 2023-11-15 | Outpatient (CLI) | payer OTHER, SELFPAY ==
[2023-11-15 08:35] LABS: Vitamin D,25 Hydroxy 54.2 ng/mL
[2023-11-15 09:16] LABS: Thyroid Stim Hormone (TSH) 2.63 uIU/mL (0.358-3.74)
== END | disposition home or self-care (01) ==
LOC: LAB 07:25
PROVIDERS: PCP Internal Medicine; Referring Provider Internal Medicine; Visit Provider Internal Medicine
DX: M85.80 Other specified disorders of bone density and structure, unspecified site (principal); E03.9 Hypothyroidism, unspecified
CPT/HCPCS: 36415; 82306; 84443

== ENCOUNTER → 2023-12-31 | Outpatient (CLI) | payer OTHER, SELFPAY ==
--- NOTE | 2023-12-31 12:00 | BI_ITS ---
MAMMOGRAPHY - BILATERAL SCREENING REASON FOR EXAM: Female, 63 years old. Routine annual screening examination. PERTINENT HISTORY: Grandmothers with breast cancer. Aunts with breast cancer. TECHNIQUE: Digital bilateral breast joe (3D mammographic acquisition) in the CC and MLO projections. 2-D mediolateral oblique (MLO) and craniocaudad (CC) views of both breasts were obtained. CAD: Full Field Digital Mammography with Computer Added Detection was performed. COMPARISON: Comparison is made with prior study dated December 28, 2022 and December 26, 2021. FINDINGS: Breast Composition: There are scattered areas of fibroglandular density. There are no dominant masses or suspicious calcifications. Stable benign-appearing bilateral axillary lymph nodes. No other significant abnormalities are identified. There has been no significant change since the prior study. BI/SCRN MAMM (CAD)W/JOE BILAT IMPRESSION: Stable bilateral screening mammogram. Yearly follow-up mammogram recommended. (A) ASSESSMENT CATEGORY: BIRADS Category 2: Benign. A letter regarding these results will be sent to the patient by the facility within 30 days. Approximately 10% of breast cancers are not detected by mammography. A normal mammogram should not delay biopsy of a clinically suspicious abnormality. [id number] Electronically Signed: Jamison Bailey MD at 12:45 EDT ,
== END | disposition home or self-care (01) ==
LOC: OPBI 11:59
PROVIDERS: PCP Internal Medicine; Referring Provider Internal Medicine; Visit Provider Internal Medicine
DX: Z12.31 Encounter for screening mammogram for malignant neoplasm of breast (principal); Z80.3 Family history of malignant neoplasm of breast
CPT/HCPCS: 77063; 77067

== ENCOUNTER → 2025-01-01 | Outpatient (CLI) | payer OTHER, SELFPAY ==
--- NOTE | 2025-01-01 11:00 | BI_ITS ---
EXAM: SCRN MAMM (CAD)W/JOE BILAT DATE: 01/01/2025 CLINICAL HISTORY: F, Age 64 y/o , BREAST CANCER SCREENING BREAST CANCER RISK ASSESSMENT: Has not been calculated. TECHNIQUE: SCRN MAMM (CAD)W/JOE BILAT COMPARISON: Prior exam(s) dated 12/31/2023, 12/28/2022, and 12/26/2021. FINDINGS: TISSUE DENSITY: The breast tissue is composed of scattered areas of fibroglandular density. Bilateral Breast Mammographic Findings: There are no suspicious masses, suspicious clustered microcalcifications, architectural distortion or secondary signs of malignancy identified in either breast. Benign-appearing round microcalcifications are seen in both breasts. BI/SCRN MAMM (CAD)W/JOE BILAT IMPRESSION: Benign screening mammogram. OVERALL FINAL ASSESSMENT BI-RADS 2: BENIGN RECOMMEND ANNUAL MAMMOGRAPHIC SCREENING. RECOMMENDATION: Routine annual follow-up in 1 Year A letter with findings and recommendations will be mailed to the patient. Reading Location: [id number]
== END | disposition home or self-care (01) ==
LOC: OPBI 10:53
PROVIDERS: PCP Internal Medicine; Referring Provider Internal Medicine; Visit Provider Internal Medicine
DX: Z12.31 Encounter for screening mammogram for malignant neoplasm of breast (principal)
CPT/HCPCS: 77063; 77067

== ENCOUNTER → 2025-01-24 | Outpatient (CLI) | payer OTHER, SELFPAY ==
[2025-01-24 08:48] LABS: Creatinine, Urine (random) 55.50 mg/dL (28.00-217.00); Microalbumin,Random Urine < 12.0 mg/L (<20 mg/L)
[2025-01-24 09:08] LABS: Cholesterol 213 mg/dL (<=200); Low Density Lipoprotein Calc. 126 mg/dL; Triglycerides 160 mg/dL; Very Low Density Lipoprotein 32 mg/dL (5-40); cholesterol:hdl ratio screen 3.84
[2025-01-24 09:10] LABS: AST(SGOT) 25 U/L (<=31); Alanine Aminotransfer ALT/SGPT 41 U/L (<=34); Albumin, Serum 4.3 g/dL (3.4-4.8); Alkaline Phosphatase 116 U/L (35-104); Anion Gap 11 (5-15); BUN 17 mg/dL (4-19); BUN/Creat Ratio 18.1 RATIO (10-20); Calcium,Total 10.2 mg/dL (7.6-11.0); Carbon Dioxide 26.5 mmol/L (21.0-32.0); Chloride 100 mmol/L (98-108); Globulin 3.3 g/dL (2.2-4.2); Glucose 100 mg/dL (70-99); Potassium 4.3 mmol/L (3.3-5.1)
== END | disposition home or self-care (01) ==
LOC: LAB 07:35
PROVIDERS: PCP Internal Medicine; Referring Provider Internal Medicine; Visit Provider Internal Medicine
DX: N18.30 Chronic kidney disease, stage 3 unspecified (principal); E03.9 Hypothyroidism, unspecified; R74.8 Abnormal levels of other serum enzymes
CPT/HCPCS: 36415; 80053; 80061; 82043; 82570; 84443